=== PATIENT | female | born 1955 | race Caucasian/White ===

== ENCOUNTER 2022-09-25 21:54 | Emergency (ER) | payer MEDICARE, OTHER, SELFPAY ==
[2022-09-25 22:00] VITALS: BP 155/88; PULSE 65; RESP 18; TEMP 36.1; O2SAT 95; BMI 25.8
[2022-09-25] MEDS: Lidocaine 4 % Cream KIT 1 APPL TOPICAL (23:09)
--- NOTE | 2022-09-25 23:23 | ED.GENADULT ---
HPI - General Adult General Chief complaint: Animal Bite Stated complaint: tick bite Time Seen by Provider: 09/25/22 22:09 Source: patient Mode of arrival: ambulatory Limitations: no limitations History of Present Illness HPI narrative: This is a 67-year-old female presenting with tick bite to left side of neck, she noticed a tick earlier today after a walk however she is unsure how long the tick is been and therefore. Patient reports that her try to take the tick out however it kept bearing itself deeper and deeper and they were unsuccessful with removing the tick. Patient requesting prophylactic doxycycline. Denies fevers, chills, joint pain, nausea you, vomiting, headache, vision changes, dizziness or altered mental status. No notable rashes Related Data Previous Rx's Medication Instructions Recorded doxycycline hyclate 100 mg capsule 100 mg PO BID 10 days #20 caps 09/25/22 Allergies Allergy/AdvReac Type Severity Reaction Status Date / Time lisinopril [Lisinopril] Allergy Severe ANGIOEDEMA Unverified 01/20/20 14:40 acetaminophen [From Vicodin] Allergy Unknown AGITATION Unverified 01/20/20 14:40 latex [Latex] Allergy Unknown ITCHING Unverified 01/20/20 14:40 From Tekturna Allergy Severe ANGIOEDEMA Uncoded 01/20/20 14:40 From Vicodin Allergy Unknown AGITATION Uncoded 01/20/20 14:40 Review of Systems Review of Systems: Constitutional : No Weight loss, No Fever, No Chills, No Fatigue, No Malaise ENT/Mouth : No sore throat, No Rhinorrhea Eyes: No Eye Pain, No Swelling, No Redness Cardiovascular : No Chest Pain, No SOB, No Dyspnea on Exertion, No Orthopnea, No Edema, No Palpitations Respiratory : No Cough, No Sputum, No Wheezing Gastrointestinal : No Nausea, No Vomiting, No Diarrhea, No Constipation, No abdominal Pain, No Hematochezia, No Melena Genitourinary : No Dysuria, No Urinary Frequency, No Hematuria, Musculoskeletal : No joint pain, No Myalgias, No Joint Swelling Skin : No Skin Lesions, No rash Neuro : No Weakness, No Numbness, No Dizziness, No Headache Psych : No Anxiety/Panic, No Depression All other systems reviewed and are negative Yes all other systems are reviewed and are negative PMFSH Past Medical History Attestation statement: The following information was validated with the patient. Source: old records reviewed and nursing notes reviewed Social History Social History Advance Directives: No Advance Directives Information Provided: Yes Physical Exam ED Vital Signs: Vital Signs - 24 hr 09/25/22 22:00 Temperature 96.9 F Pulse Rate 65 Respiratory Rate 18 Blood Pressure 155/88 H Pulse Oximetry 95 Oxygen Delivery Method Room Air BMI result Body Mass Index 25.8 vss Appearance: Alert.? Oriented X3.? No acute distress.? Head: Normocephalic, atraumatic, no step-offs or deformities Eyes: Pupils equal, round and reactive to light.? Neck: Normal inspection.? Neck supple.? + tick bite to L side of neck w/ tick still embedded CVS: Normal heart rate and rhythm.? Pulses normal.? Respiratory: No respiratory distress.? Breath sounds normal.? Abdomen: Soft and nontender.? Skin: Skin warm and dry.? Normal skin color.? Normal skin turgor.? Extremities: No lower extremity edema.? No calf ttp. 5/5 strength to bilateral upper and lower extremities Neuro: Oriented X 3.? No motor deficit.? No sensory deficit. CN 2-12 intact Course Reevaluation(s) Reevaluation #1: My attending removing tick. Patient to be discharged with doxycycline. Educated patient on diagnosis and treatment plan, answered all question, patient verbalizes understanding. At this time patient will be discharged home, advised to return with new or worsening symptoms. Educated on worrisome signs and symptoms and when to return. At this time I feel comfortable discharge home. Time: 23:26 Medications Administered Discontinued Medications Generic Name Dose Route Start Last Admin Trade Name Manuel PRN Reason Stop Dose Admin Lidocaine HCl 1 appl 09/25/22 22:44 09/25/22 23:09 Lidocaine 4 % Cream Kit TOPICAL 09/25/22 22:45 1 appl ONCE ONE Administration Protocol Medical Decision Making Medical Decision Making [facility] Narrative: 2300 67-year-old female presents with tick bite to left lateral aspect of neck, noticed it today however unclear when the tick attached. Physical exam significant for tick bite to left lateral aspect of neck. Concerns for tick bite, no signs of cellulitis, necrotizing infection. Will obtain test for Lyme disease. Plan removal of took. Differential Diagnosis Differential Diagnoses: The differential diagnosis associated with the presentation includes Concerns for tick bite, no signs of cellulitis, necrotizing infection. Will obtain test for Lyme disease. Admission/Observation Consideration of admission/observation: Escalation of care including admission/observation considered Core Measures AMI core measures followed: Yes Measure exclusions: not indicated Critical Care Time Critical Care Time Critical Care Time: No Discharge Plan Discharge Clinical Impression: Tick bite Patient Disposition: Home, Self-Care Instructions: Tick Bite (ED) Additional Instructions: Take your medications as prescribed. If you were prescribed antibiotics today, it is important that you take your medication to their entirety, do not skip any doses, do not finish them early. Follow-up with your primary care provider this week. Return to the emergency department with new or worsening symptoms. Such as fevers, chills, chest pain, shortness of breath, nausea, vomiting, dizziness, headache, vision changes, lethargy In case of emergency call 911 Prescriptions at [facility] in [place] Use caution in direct sunlight with doxycycline and can cause a skin rash. Wear hat when possible and long sleeves Prescriptions: New doxycycline hyclate 100 mg capsule 100 mg PO BID 10 Days Qty: 20 0RF Referrals: Dickson Kendrick MD [Primary Care Provider] - 2 days
--- NOTE | 2022-09-25 23:52 | PC.NURSE ---
Per MD Shane to this RN- please cancel orders for both Lyme and Tick-Borne disease blood draws
== END 2022-09-25 23:59 | disposition home or self-care (01) ==
PROVIDERS: Emergency Provider Internal Medicine; PCP Internal Medicine
DX: S10.96XA Insect bite of unspecified part of neck, initial encounter (principal); W57.XXXA Bitten or stung by nonvenomous insect and other nonvenomous arthropods, initial encounter; Y93.01 Activity, walking, marching and hiking; Y92.9 Unspecified place or not applicable; Y99.9 Unspecified external cause status
CPT/HCPCS: 99282; 99283

== ENCOUNTER 2023-07-10 09:23 | Outpatient (REF) | payer MEDICARE, OTHER, SELFPAY ==
[2023-07-10 11:38] LABS: MANUAL DIFF FLAG NO
[2023-07-10 11:47] LABS: Basophils Percent Auto 0.7 % (0-2); Eosinophils Absolute Auto 0.2 X10*3/uL (0.0-0.4); Eosinophils Percent Auto 3.3 % (0-4); Hematocrit 40.7 % (37.0-47.0); Hemoglobin 13.8 g/dl (12.0-16.0); Imm Gran Abs Auto 0.01 X10*3/uL (0.00-0.03); Imm Gran Pct Auto 0.2 % (0.0-0.4); Lymphocytes Absolute Auto 1.8 X10*3/uL (1.2-4.9); Lymphocytes Percent Auto 40.9 % (20-40); Mean Corpuscular HGB Conc 33.9 g/dl (31.0-35.0); Mean Corpuscular Hemoglobin 30.6 pg (27.0-33.0); Mean Corpuscular Volume 90.2 fL (80.0-98.0); Mean Platelet Volume 10.4 fL (9.4-12.3); Monocytes Absolute Auto 0.3 X10*3/uL (0.1-1.2); Neutrophils Absolute Auto 2.2 x10*3/uL (2.0-8.3); Neutrophils Percent Auto 48.9 % (45-73); Platelet Count 210 X10*3/uL (160-400); Red Blood Count 4.51 X10*6/uL (4.20-5.50); Red Cell Distribution Width 12.3 % (11.0-16.0); White Blood Count 4.5 X10*3/uL (4.8-10.8)
[2023-07-10 12:22] LABS: Alanine Aminotransferase 14 U/L (0-31); Albumin Level 3.9 g/dL (3.5-5.0); Alkaline Phosphatase 49 U/L (39-117); Anion Gap 10 (12-20); Aspartate Amino Transferase 13 U/L (5-31); Bilirubin Total 0.7 mg/dL (0.0-1.0); Blood Urea Nitrogen 15 mg/dL (9-16); Calcium 9.1 mg/dL (8.4-10.2); Carbon Dioxide 26 mmol/L (22-29); Chloride 108 mmol/L (96-108); Estimated Glomerular Filt Rate > 60; Glucose Random 102 mg/dL (60-115); Sodium 140 mmol/L (135-145); Total Protein 7.1 g/dL (6.5-8.0)
== END 2023-07-10 09:24 | disposition home or self-care (01) ==
LOC: HO.10HDL 09:23
PROVIDERS: Visit Provider Internal Medicine Hypertension Specialist
DX: N18.30 Chronic kidney disease, stage 3 unspecified (principal)
CPT/HCPCS: 36415; 80053; 85025

== ENCOUNTER 2023-07-17 13:13 | Outpatient (AMB) | payer MEDICARE, OTHER, SELFPAY ==
[2023-07-17 13:18] VITALS: BP 132/82; PULSE 76; O2SAT 95; BMI 37.7
--- NOTE | 2023-07-17 13:18 | HO.NEPHOV ---
HPI HPI Comments History of Present Illness Details Laura is well known to me for the last earlier she has a 68-year-old woman with a history of obesity and hypertension. She was on Bystolic which she has stopped and she started with Aldactone 12.5 mg a day. At present blood pressure seems to be well controlled. She has no complaints today. She continues to use CPAP regularly. [facility] Medical History (Updated 07/17/23 @ 13:32 by Eric Richmond MD) Sleep apnea Malignant tumor of breast Hypertension Hearing problem Surgical History S/P lumpectomy, right breast Family History Father Hypertension Stroke Heart disease Brother Hypertension Diabetes Social History Alcohol intake: never Patient Tobacco Use Status: Never used Tobacco Vital Signs 07/17/23 13:18 Height 5 ft 8 in Weight 248 lb BMI 37.7 BP 132/82 Blood Pressure Location Lt brachial Position Sitting Pulse 76 Pulse Source Pulse Oximeter Pulse Oximetry (%) 95 Oxygen Delivery Method Room Air Physical Exam Vital Signs: Last Vital Signs Pulse 76 07/17/23 13:18 BP 132/82 07/17/23 13:18 Pulse Ox 95 07/17/23 13:18 Oxygen Delivery Method Room Air 07/17/23 13:18 BMI result Body Mass Index 37.7 Const General: comfortable Nutritional Appearance: well nourished Orientation/consciousness: patient oriented x3 HEENT Head: No normal to inspection Mouth: moist mucous membranes Neck Neck: Yes supple and Yes no JVD Resp Auscultation: clear to auscultation bilaterally, no rales and rub present Cardio Jugular venous distension: no JVD Palpation: no palpable S3 and no palpable S4 Heart sounds: no rubs GI Palpation (GI): Soft to palpation and nontender Percussion: No Fluid wave present General: Yes no CVA tenderness Back/Spine/Pelvis Back: no CVA tenderness Skin General skin exam: no rashes or lesions noted Neuro General: patient oriented x3 Extrem General: Yes no pedal edema and No clubbing Assessment & Plan Assessment & Plan (1) Hypertension: Code(s): I10 - Essential (primary) hypertension Plan Blood pressure controlled Encouraged to stay on low-sodium diet. She should try to lose some weight and increase physical activity. I have encouraged her to continue using CPAP which should eventually help to lower her blood pressure. No changes were made to the antihypertensive regimen today. Renal function stable at this time. Orders: Orders Basic Metabolic Panel 6 Months I10 - Essential (primary) hypertension Coding Level of Care Code Est Pt Level 4 (85273) Diagnoses Hypertension I10 Results Reviewed Nephrology Results: Hgb 13.8 g/dl (12.0-16.0) 07/10/23 WBC 4.5 X10*3/uL (4.8-10.8) L 07/10/23 Plt Count 210 X10*3/uL (160-400) 07/10/23 Sodium 140 mmol/L (135-145) 07/10/23 Potassium 4.0 mmol/L (3.3-5.1) 07/10/23 Chloride 108 mmol/L (96-108) 07/10/23 Carbon Dioxide 26 mmol/L (22-29) 07/10/23 BUN 15 mg/dL (9-16) 07/10/23 Creatinine 0.74 mg/dL (0.5-1.4) 07/10/23 Calcium 9.1 mg/dL (8.4-10.2) 07/10/23
== END 2023-07-17 13:34 | disposition home or self-care (01) ==
PROVIDERS: PCP Internal Medicine; Referring Provider Internal Medicine; Visit Provider Internal Medicine Hypertension Specialist
DX: I10 Essential (primary) hypertension (principal)
CPT/HCPCS: 99214

== ENCOUNTER → 2023-07-17 13:13 | Outpatient (BNVA) | payer MEDICARE, OTHER, SELFPAY | PROVIDERS: PCP Internal Medicine; Visit Provider Internal Medicine Hypertension Specialist | DX: I10 Essential (primary) hypertension (principal) | CPT/HCPCS: 99212 ==

== ENCOUNTER 2024-01-20 10:41 | Outpatient (AMB) | payer MEDICARE, OTHER, SELFPAY ==
[2024-01-20 10:43] VITALS: BP 112/80; PULSE 65; O2SAT 96; BMI 38.2
--- NOTE | 2024-01-20 10:43 | HO.NEPHOV_ITS ---
Vital Signs 01/20/24 10:43 Height 5 ft 8 in Weight 251 lb BMI 38.2 BP 112/80 Blood Pressure Location Lt brachial Position Sitting Pulse 65 Pulse Source Pulse Oximeter Pulse Oximetry (%) 96 Oxygen Delivery Method Room Air Intake Visit Reasons: Hypertension/ 6 MO FU/ LVM Profiling Machine Set Up Operator Required: No Accompanied by: Self / Same As Patient Allergies lisinopril [Lisinopril] Allergy (Severe, Verified 01/20/24 10:45) ANGIOEDEMA acetaminophen [From Vicodin] Allergy (Unknown, Verified 01/20/24 10:45) AGITATION latex [Latex] Allergy (Unknown, Verified 01/20/24 10:45) ITCHING From Tekturna Allergy (Severe, Uncoded 01/20/20 14:40) ANGIOEDEMA From Vicodin Allergy (Unknown, Uncoded 01/20/20 14:40) AGITATION Medication List - Last Reconciled 01/20/24 by Eric Richmond MD spironolactone 25 mg PO DAILY HPI Comments Details: Laura is well known to me for the last earlier she has a 68-year-old woman with a history of obesity and hypertension. She was on Bystolic which she has stopped and she started with Aldactone 12.5 mg a day. At present blood pressure seems to be well controlled. She has no complaints today. She continues to use CPAP regularly. 01/20/24 Has gained weight ADmits to eating out alot [facility] Medical History (Updated 07/17/23 @ 13:32 by Eric Richmond MD) Sleep apnea Malignant tumor of breast Hypertension Hearing problem Surgical History S/P lumpectomy, right breast Family History Father Hypertension Stroke Heart disease Brother Hypertension Diabetes Social History Alcohol intake: never Patient Tobacco Use Status: Never used Tobacco Physical Exam Vital Signs: Last Vital Signs Pulse 65 01/20/24 10:43 BP 112/80 01/20/24 10:43 Pulse Ox 96 01/20/24 10:43 Oxygen Delivery Method Room Air 09/17/24 10:43 BMI result Body Mass Index 38.2 Results Reviewed Nephrology Results: Hgb 13.8 g/dl (12.0-16.0) 07/10/23 WBC 4.5 X10*3/uL (4.8-10.8) L 07/10/23 Plt Count 210 X10*3/uL (160-400) 07/10/23 Sodium 140 mmol/L (135-145) 07/10/23 Potassium 4.0 mmol/L (3.3-5.1) 07/10/23 Chloride 108 mmol/L (96-108) 07/10/23 Carbon Dioxide 26 mmol/L (22-29) 07/10/23 BUN 15 mg/dL (9-16) 07/10/23 Creatinine 0.74 mg/dL (0.5-1.4) 07/10/23 Calcium 9.1 mg/dL (8.4-10.2) 07/10/23 Assessment & Plan Assessment & Plan (1) Hypertension: Code(s): I10 - Essential (primary) hypertension Category: Medical Plan Blood pressure controlled Encouraged to stay on low-sodium diet. She should try to lose some weight and increase physical activity. I have encouraged her to continue using CPAP which should eventually help to lower her blood pressure. No changes were made to the antihypertensive regimen today. Renal function stable at this time. Orders: Orders Basic Metabolic Panel 6 Months I10 - Essential (primary) hypertension Coding Level of Care Code Est Pt Level 3 (63490) Diagnoses Hypertension I10
== END 2024-01-20 10:58 | disposition home or self-care (01) ==
PROVIDERS: PCP Internal Medicine; Visit Provider Internal Medicine Hypertension Specialist
DX: I10 Essential (primary) hypertension (principal)
CPT/HCPCS: 99213

== ENCOUNTER → 2024-01-20 10:41 | Outpatient (BNVA) | payer MEDICARE, OTHER, SELFPAY | PROVIDERS: PCP Internal Medicine; Visit Provider Internal Medicine Hypertension Specialist | DX: I10 Essential (primary) hypertension (principal); Z99.89 Dependence on other enabling machines and devices | CPT/HCPCS: 99212 ==

== ENCOUNTER 2024-10-01 13:48 | Outpatient (REF) | payer SELFPAY ==
--- OUTSIDE RECORDS SUMMARY | 2024-10-01 13:56 | XMS_ITS ---
Author Organization [facility] Address [address] [place] [address] Care Team Providers Care Route Sales Delivery Driver Name Role Phone Dickson Kendrick MD Primary Care Provider Cathy Davis [phone] Encounters Encounter Location Date Provider Diagnosis [facility] [address] [place] [address] 08/06/2023 Cathy Levine Plan Of Treatment No Information Progress Notes * Cristopher CARBONE MDOB: [birth year] (69 yo F)Acc No.[id number]:08/06/2023 Progress Note Patient:?Cristopher CARBONE Provider:?Cathy Levine DPM :1955???Age:68 Y???Sex:Female D ate:08/06/2023 Address:[address], [place] Pcp:Dickson Kendrick MD Subjective: * Chief Complaints: * ??? * Medical History:? Objective: * Vitals:? Assessment: Plan: * Treatment: * Images: * The named appointment provid er may or may not be the originator of this progress note, and it is not deemed complete until electronically signed by the appointment provider. Sign off status: Pending * Provider:?Cathy Levine DPM Date:?07/2023 Generated for Printi bradley/Jessi/eTransmitting on:?10/01/2024 01:56 PM EDT
--- NOTE | 2024-10-01 15:16 | MHC.AU.HA1 ---
Hearing Aid Evaluation Date of Visit: 10/01/24 Animal Control Officer Used: Historical Information: Description of Hearing: Moderate to moderately severe sensorineural hearing loss bilaterally Current personal amplification information, if applicable: [employer] Larkin RICs Summary: Laura is here to discuss hearing aids, has worn hearing aids for many years and is currently wearing a pair of Larkin RICs that she is unhappy with. States she has not used her hearing aid benefit in several years, did not submit for [facility] reimbursement for her Larkin aids that were purchased about a year ago. She is specifically interested in new Phonak aids as she wore them in the past and liked them, found phone reliability to be good. She does not want rechargeable hearing aids. Discussed this means Lumity rather than Infinio, she is fine with this. Recommended earmolds, states she has tried them a few times in the past and always ended up in domes as she could not tolerate them. Discussed reasons for earmolds, patient agreed to try them if we are unable to obtain sufficient gain with domes. Selected Phonak Audeo L70-312 in teal. Completed order confirmation form, went to front to pay $350. Aware she will pay in full at fitting and get itemized receipt for insurance reimbursement. States she has old [employer] hearing aids she will be bringing as donation. Hearing Aid Prescription: Based on the individual?s shared listening needs, communication environments, dexterity, desire for connectivity, and personal preferences, the following prescription for amplification has been made: Right ear: Make, Model, Color: Phonak Audeo L70-312, teal Battery Size: 312 Lumber Mover/Slim Tube: 2 M Type of Earmold/Dome/CShell/SlimTip: sm power Left ear: Left ear prescription to be same as Right Hearing Aid above: Make, Model, Color: Phonak Audeo L70-312, teal Battery Size: 312 Lumber Mover/Slim Tube: 2 M Type of Earmold/Dome/CShell/SlimTip: sm power Plan of Care: Patient wishes to purchase hearing aids as prescribed Action Taken/Action Needed: Hearing Instrument Fitting to be scheduled when materials arrive Primary Diagnosis: H90.3 Bilateral Sensorineural Hearing Loss Signature: Provider: Jorgito Preciado, [facility]
== END 2024-10-01 13:49 | disposition home or self-care (01) ==
LOC: HO.HAP 13:48
PROVIDERS: PCP Internal Medicine; Visit Provider Otolaryngology
DX: Z46.1 Encounter for fitting and adjustment of hearing aid (principal); H90.3 Sensorineural hearing loss, bilateral
CPT/HCPCS: 92590

== ENCOUNTER 2024-10-19 15:18 | Outpatient (REF) | payer SELFPAY ==
--- OUTSIDE RECORDS SUMMARY | 2024-10-19 17:49 | XMS_ITS ---
Author Name [facility] Organization Unknown Encounters Encounter Type Encounter Reason Primary Diagnosis Location Date Emergency Tick bite with subsequent removal of tick Tick bite with subsequent removal of tick [facility] 10/12/2024 Care Team Organization Name Specialty Phone Email Start Date End Da te [facility] 10/13/2024 [facility] 10/13/2024
== END 2024-10-19 15:19 | disposition home or self-care (01) ==
LOC: HO.HAP 15:18
PROVIDERS: Visit Provider Internal Medicine
DX: Z46.1 Encounter for fitting and adjustment of hearing aid (principal); H90.3 Sensorineural hearing loss, bilateral
CPT/HCPCS: 92700; V5261

== ENCOUNTER 2024-11-09 13:57 | Outpatient (REF) | payer SELFPAY ==
--- OUTSIDE RECORDS SUMMARY | 2023-08-06 05:00 | XMS_ITS ---
Author Organization [facility] Address [address] [place] [address] Care Team Providers Care Mobile Service Rv Technician Name Role Phone Dickson Kendrick MD Primary Care Provider Cathy Davis [phone] Encounters Encounter Location Date Provider Diagnosis [facility] [address] [place] [address] 08/06/2023 Cathy Levine Plan Of Treatment No Information Progress Notes * Cristopher CARBONE MDOB: [birth year] (69 yo F)Acc No.[id number]:08/06/2023 Progress Note Patient: Caren ESCOBAR Cristopher Belle Provider: Varinder Levine DPM :1955 A ge:68 Y S ex:Female Date:08/06/2023 Address:[address], [id number] Pcp:Dickson Kendrick MD Subjective: * Chief Complaints: [...] 0 08/06/2023 Generated for Printi ng/Faxing/eTransmitting on: 11/09/2024 02:46 PM EDT
--- OUTSIDE RECORDS SUMMARY | 2024-11-09 14:47 | XMS_ITS | Clinical Summary ---
Author Organization [facility] Address [address] [place] [address] Phone Care Team Providers Care Electronic Organ Technician Name Role Phone Dickson Kendrick MD Primary Care Provider [phone] Allergies Active Allergy Reactions Criticality Noted Date Comments Tremaine Inhibitors Other (see comments) 06/29/2020 Aliskiren 11/17/2020 Amlodipine Other (see comments) 06/29/2020 Hydrochlorothiazide Other (see comments) 06/29/2020 Hydrocodone-Acetaminophen 11/17/2020 Other reaction(s): AGITATED Latex Other (see comments) 06/29/2020 Metoprolol Other (see comments) 06/29/2020 Medications cholecalciferol (VITAMIN D-3) 25 MCG (1000 UT) capsule Take 1 capsule by mouth 1 (one) time each day Active omega-3 (FISH OIL) 1000 MG capsule Active cyanocobalamin (VITAMIN B-12) 100 MCG tablet 0 Refills, Maintenance 3 Active spironolactone (ALDACTONE) 25 MG tablet TAKE 1 TABLET BY MOUTH EVERY DAY 90 tablet 3 3 Active Active Problems Problem Noted Date Diagnosed Date Increased blood pressure 06/29/2020 Essential hypertension 06/29/2020 Sleep apnea 06/29/2020 Endometriosis 01/18/2014 Hyperglycemia 01/18/2014 Migraine 01/18/2014 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 Sensorineural hearing loss <Unspecified side> Family History Medical History Relation Comments Heart disease Father irregular heart beat Hypertension Father Stroke Father Diabetes Sibling 1 brother Hypertension Sibling 2 brother/sister Relation Status Comments Father Mother Sibling 1 Sibling 2 Social History Tobacco Use Types Packs/Day Years Used Date Smoking Tobacco: Never Smokeless Tobacco: Never Tobacco Cessation:Counseling Given: Not Answered Alcohol Use Standard Drinks/Week Comments No 0 (1 standard drink = 0.6 oz pur e alcohol) Comments Unknown Sex and Gender Information Value Date Recorded Sex Assigned at Not on file Legal Sex Female 4:47 PM EST Gender Identity Not on file Sexual Orientation Not on file Last Filed Vital Signs Vital Sign Reading Time Taken Comments Blood Pressure 126/78 04/17/2022 1:23 PM EST Pulse 55 04/17/2022 1:23 PM EST Temperature - - Respiratory Rate - - Oxygen Saturation 95% 04/17/2022 1:23 PM EST Inhaled Oxygen Concentration - - Weight 110 kg (243 lb 3.2 oz) 04/17/2022 1:23 PM EST Height 175.3 cm (5' 9 ) 06/03/2019 12:00 PM EST Body Mass Index 35.91 06/03/2019 12:00 PM EST Plan of Treatment Health Maintenance Due Date Last Done Comments Breast Cancer Screening 1955 Pneumococcal Vaccine: 50+ Ye ars (1 of 2 - PCV) 12/31/1974 Colorectal Cancer Screening: Annual FOBT 12/31/2004 Colorectal Cancer Screening: Colonoscopy 12/31/2004 Colorectal Cancer Screening: Sigmoidoscopy 12/31/2004 Influenza Vaccine (#1) 2025 Hepatitis B Vaccine Aged Out No longe r eligible based on patient's age to complete this topic Insurance [facility] Medicare [facility] Medicare Care Teams Electronic Organ Technician Relationship Specialty Start Date End Date Dickson Kendrick MD [address] [place] [id number] PCP - General Internal Medicine 04/17/22
--- OUTSIDE RECORDS SUMMARY | 2024-11-09 14:47 | XMS_ITS | Data Portability ---
Author Organization [place] - [facility], Allergy Address [address] [address] Care Team Providers Care Clinical Educator Name Role Phone PAUL GENTILE Primary Care Provider [phone] Assessment No assessment recorded. Plan of Treatment Reminders Order Date Submit Date Provider Last Modified By Organization Details Last Modified Time Details Appointments None record ed. Lab None record ed. Referral None record ed. Procedures None record ed. Surgeries None record ed. Imaging None record ed. Medication Orders None record ed. Patient TargetsNo targets recorded. Patient InstructionsNo instructions recorded. Reason for Referral None Reported. Results Created Date Observation Date Name Description Value Unit Range Abnormal Flag Note LastModifiedBy Organization Detail LastModifiedTime 06/28/19 25 audio gram No observ ation record ed. BARCODE Not Available 2024 16:25:59 Result Notes None recorded. 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 - [facility] 5 10:24:12 Problem Notes None recorded. Procedures Surgical History Date Name Laterality Status Provider Name and Address Organization Details Recorded Time 5 Comp Audio with Tymps - 43867 & 83670 completed RONEY RICHARDS, [facility] 100 [facility], [place], [address], [facility] 06/28/2024 10:25:19 breast procedure completed Elham Johnston [facility] 06/28/2024 09:39:11 Imaging Results None recorded. Procedure Notes None recorded. Medical Equipment None Reported. Allergies Allergen ID Allergen Name Allergen Category Reaction Reaction Severity Criticality Documentation Date Start Date Code Code System Note Provider Name and Address Organization Details Recorded Time 770361 lisinopri l medicatio n other Not available Not available 09/16/2023 73352 RxNorm React ion: unkno wn, unspe cifie d;; Not Available [facility] 4 01:15:21 264529 Coreg medicatio n Not available Not available Not available 06/28/2024 99163 1 RxNorm Elham barnes [facility] 5 09:38:01 Medications Name Sig Start Date Stop Date Status Note LastModified by Organization Details LastModified Time wart 1.0 (cimetidi ne 2 + acyclovir 1 + imiquimod 0.25 + salicylic acid 15) USING A GLOVE AND Q-TIP, APPLY 1-2 CLICKS (0.25-0. 5 GM) TO AFFECTED WART AREA ONLY ONCE DAILY. 06/28 completed Not Available Not Available Not Available peg-elect rolyte solution 420 gram oral solution 06/28 completed Medicati on ID: 42257 Du ration Value: 1 Brand Name: peg-elec trolyte soln Baldo parra Method: E-Prescr ibed Sub s Allowed: subs OK Medic ationGen ericName : peg-elec trolyte soln Not Available Not Available Not Available spironola ctone 25 mg tablet TAKE 1 TABLET BY MOUTH EVERY DAY active Not Available Not Available No t Available clotrimaz ole 1 % topical solution 06/28 completed Medicati on ID: 34131 Du ration Value: 14 Prescri bed By Name: BROWN Castellon nd Name: zita zoloj Sen d Method: E-Prescr ibed Sub s Allowed: subs OK Speci al Instruct ion: 3 drops to affected ear three times a day Medi cationGe nericNam e: clotrima zole Not Available Not Available Not Available Bystolic 5 mg tablet 06/28 completed Medicati on ID: 48096 Du ration Value: 90 Brand Name: Esau Send Method: E-Prescr ibed Sub s Allowed: subs OK Medic ationGen ericName : Bystolic Not Available Not Available Not Available Vitals None Recorded Social History None recorded. Functional Status None recorded. Mental Status None recorded. Family History Nothing Reported. Medical History Condition Response Cancer Y Heart Problems Y Sleep Disorder Y Gynecological HistoryNo gynecological history recorded. Obstetrics History GPAL:G 0 P 0 0 0 0 Past Encounters Encounter ID Performer Location Encounter Start Date Encounter Closed Date Diagnosis/Indication Diagnosis SNOMED-CT Code Diagnosis ICD10 Code Diagnosis Note [id number] DENTON BRITO MD [facility] on [address] [place] [phone] 06/28/2024 09:19:04 06/28/2024 10:45:02 Sensorineural hearing loss of bilateral ears 506838756 H90.3 Patient with bilateral moderately severe sensorineu ral hearing loss with relatively well-maint ained speech discrimina tion. She remains a good candidate for binaural amplificat ion. We discussed how her current devices may not be able to meet her needs adequately . She is eager to get back into the [employer] technology that has done so well for her in the past. We discussed the likelihood that she may need custom earmolds to accommodat e the degree of hearing loss that she has. She will speak more with Roney about this at a hearing aid evaluation . We will set this up as soon as possible. [place] [id number] KRISSY FERRER [facility] on [address] [place] [phone] 06/28/2024 10:23:58 06/28/2024 10:41:58 Sensorineural hearing loss of bilateral ears 160721078 H90.3 Audiologic al evaluation results: 06/28/2024 Right ear: Mild sloping to moderately severe sensorineu ral hearing loss with fair word recognitio n. Left ear: Mild sloping to moderately severe sensorineu ral hearing loss with fair word recognitio n. Tympanomet ry: Right Ear:Type Ad Left Ear:Type Ad Health Concerns Section Related Observation LastModified by Organization Detai ls LastModified Time None Recorded Concern Status LastModified by Organization Details LastModified Time None Recorded Advance Directives Directive None Recorded Payers Insurance Date Sequence Insurance Name Policy Number Policy Patten Covered Member ID Patten Member ID Guarantor Name 06/29/2024 2 [facility] (MEDICARE SUPPLEMENT) Cristopher Carbone [id number] Cristopher Carbone 06/23/2024 1 [place] [employer] Laura Barbra Carbone [id number] Cristopher Carbone Notes Date Note Type Note Provider Name and Address Organization Details Recorded Time 06/28/2024 text/html Patient who was last seen through our office back in 2014. She has a bilateral moderately severe sensorineural hearing loss with relatively well-maintained speech discrimination. She has been working with [employer] over the years using amplification. She used [employer] devices for a number of years with good results. Recently got a new pair of Clara devices but these are not working as well for her recently. DENTON BRITO MD [address] [place] [address], [phone], [facility] - [facility] 06/28/2024 10:42:16 06/28/2024 text/html KRISSY BURR [address] [place] [address],[address], [address], [facility] 06/28/2024 10:25:32 OBGyn Episode No OBEpisode recorded.
== END 2024-11-09 13:58 | disposition home or self-care (01) ==
LOC: HO.HAP 13:57
PROVIDERS: Visit Provider Internal Medicine
DX: Z13.89 Encounter for screening for other disorder (principal)

== ENCOUNTER 2024-11-17 15:33 | Outpatient (REF) | payer SELFPAY ==
--- OUTSIDE RECORDS SUMMARY | 2023-08-06 05:00 | XMS_ITS ---
Author Organization [facility] Address [address] [place] [address] Care Team Providers Care Sorting Machine Operator Name Role Phone Dickson Kendrick MD Primary Care Provider Cathy Davis [phone] Encounters Encounter Location Date Provider Diagnosis [facility] [address] [place] [address] 08/06/2023 Cathy Levine Plan Of Treatment No Information Progress Notes * Cristopher CARBONE MDOB: [birth year] (69 yo F)Acc No.[id number]:08/06/2023 Progress Note Patient: Caren ESCOBAR Cristopher Belle Provider: Varinder Levine DPM :1955 A ge:68 Y S ex:Female Date:08/06/2023 Address:[address], [id number] Pcp:Dickson Kendrick MD Subjective: * Chief Complaints: [...] 08/06/2023 Generated for Printi ng/Faxing/eTransmitting on: 0 11/17/2024 03:42 PM EDT
--- OUTSIDE RECORDS SUMMARY | 2024-11-17 15:43 | XMS_ITS ---
Author Name [facility]ISP Organization Unknown Encounters Encounter Type Encounter Reason Primary Diagnosis Location Date Emergency Tick bite with subsequent removal of tick Tick bite with subsequent removal of tick [facility] 10/12/2024 Care Team Organization Name Specialty Phone Email Start Date End Da te [facility] 10/13/2024 07 [facility] 10/13/2024
--- OUTSIDE RECORDS SUMMARY | 2024-11-17 15:43 | XMS_ITS | Clinical Summary ---
Author Organization [facility] Address [address] [place] [address] Phone Care Team Providers Care Vocational Case Manager Name Role Phone Dickson Kendrick MD Primary Care Provider [phone] Allergies Active Allergy Reactions Criticality Noted Date [...] patient's age to complete this topic Insurance [facility] Medicare [facility] Medicare Care Teams Vocational Case Manager Relationship Specialty Start Date End Date Dickson Kendrick MD [address] [place] [id number] PCP - General Internal Medicine 04/17/22
--- OUTSIDE RECORDS SUMMARY | 2024-11-17 15:43 | XMS_ITS | Data Portability ---
Author Organization [place] - [facility], Allergy Address [address] [address] Care Team Providers Care Cattle Producers Name Role Phone PAUL GENTILE Primary Care Provider [phone] Assessment No assessment recorded. Plan of Treatment [...] Address Organization Details Recorded Time Dermal mycosis 38379367 Active 2014 Dermatomyc osis, other and unspecifie d: Other specified dermatomyc oses; Note: Date Diagnosed: 06/29/2014 10:01 AM (111.8) Not Available [facility] 4 02:51:41 Chronic mycotic otitis externa 864901972 Active 2014 Chronic mycotic otitis externa; Note: Date Diagnosed: 06/14/2014 4:42 PM (380.15) Not Available [facility] 4 02:51:39 Sensorine ural hearing loss of bilateral ears 219950399 Active 2024 RONEY RICHARDS, AUD 100 [facility] 100, [facility] TARIK parra, [address] , [facility] - [facility] 5 10:24:12 Problem Notes None recorded. Procedures Surgical History Date Name Laterality Status Provider Name and Address Organization Details Recorded Time 5 Comp Audio with Tymps - 42407 & 36530 completed RONEY RICHARDS, [facility] 100 [facility] 100, [place], [address], [facility] 06/28/2024 10:25:19 breast procedure completed Elham Johnston [facility] 06/28/2024 09:39:11 Imaging Results None recorded. Procedure Notes None recorded. Medical Equipment None Reported. Allergies Allergen ID Allergen Name Allergen Category Reaction Reaction Severity Criticality Documentation Date Start Date Code Code System Note Provider Name and Address Organization Details Recorded Time 267767 lisinopri l medicatio n other Not available Not available 09/16/2023 04586 RxNorm React ion: unkno wn, unspe cifie d;; Not Available [facility] 4 01:15:21 235756 Coreg medicatio n Not available Not available Not available 06/28/2024 09945 1 RxNorm Elham barnes [facility] 5 09:38:01 Medications Name Sig Start Date [...] oral solution 06/28 completed Medicati on ID: 81388 Du ration Value: 1 Brand Name: peg-elec trolyte soln Baldo parra Method: E-Prescr ibed Sub s Allowed: subs OK Medic ationGen ericName : peg-elec trolyte soln Not Available Not Available Not Available spironola ctone 25 mg tablet TAKE 1 TABLET BY MOUTH EVERY DAY active Not Available Not Available No t Available clotrimaz ole 1 % topical solution 06/28 completed Medicati on ID: 01180 Du ration Value: 14 Prescri bed By Name: BROWN Castellon nd Name: zita zoloj Sen d Method: E-Prescr ibed Sub s Allowed: subs OK Speci al Instruct ion: 3 drops to affected ear three times a day Medi cationGe nericNam e: clotrima zole Not Available Not Available Not Available Bystolic 5 mg tablet 06/28 completed Medicati on ID: 50568 Du ration Value: 90 Brand Name: Esau Send Method: E-Prescr ibed Sub s Allowed: subs OK Medic ationGen ericName : Bystolic Not Available Not Available Not Available Vitals None Recorded Social History None recorded. Functional Status None recorded. Mental Status None recorded. Family History Nothing Reported. Medical History Condition Response Heart Problems Y Cancer Y Sleep Disorder Y Gynecological HistoryNo gynecological history recorded. Obstetrics History GPAL:G 0 P 0 0 0 0 Past Encounters Encounter ID Performer Location Encounter Start Date Encounter Closed Date Diagnosis/Indication Diagnosis SNOMED-CT Code Diagnosis ICD10 Code Diagnosis Note [id number] DENTON BRITO MD [facility] on [address] [place] [phone] 06/28/2024 09:19:04 06/28/2024 10:45:02 Sensorineural hearing loss of bilateral ears [id number] H90.3 Patient with bilateral moderately severe sensorineu [...] medically [place] [id number] KRISSY FERRER [facility] on [address] [place] [phone] 06/28/2024 10:23:58 06/28/2024 10:41:58 Sensorineural hearing loss of bilateral ears [id number] H90.3 Audiologic al evaluation results: 06/28/2024 Right [...] Patten Member ID Guarantor Name 06/29/2024 2 [facility] (MEDICARE SUPPLEMENT) Cristopher Carbone [id number] Cristopher Carbone 06/23/2024 1 [place]IC[place]: [employer] Laura Barbra Carbone [id number] Cristopher Carbone Notes Date Note Type Note Provider Name and Address Organization Details Recorded Time 06/28/2024 text/html Patient who was last seen through our office back in 2014. She has a bilateral moderately severe sensorineural hearing loss with relatively well-maintained speech discrimination. She has been working with [employer] over the years using amplification. She used [employer] devices for a number of years with good results. Recently got a new pair of Clara devices but these are not working as well for her recently. DENTON BRITO MD [address] [place] [address], [phone], [facility] - [facility] 06/28/2024 10:42:16 06/28/2024 text/html KRISSY BURR [address] [place] [address],[address], [address], [facility] 06/28/2024 10:25:32 OBGyn Episode No OBEpisode recorded.
== END 2024-11-17 15:34 | disposition home or self-care (01) ==
LOC: HO.HAP 15:33
PROVIDERS: Visit Provider Internal Medicine
DX: Z13.89 Encounter for screening for other disorder (principal)

== ENCOUNTER 2024-12-01 13:57 | Outpatient (REF) | payer SELFPAY ==
--- OUTSIDE RECORDS SUMMARY | 2024-11-29 23:59 | XMS_ITS | Continuity of Care Document ---
Author Organization [facility] [employer] Address [address] [place] [address]- Care Team Providers Care [place] House Worker Name Role Phone Dickson Kendrick MD Primary Care Physician [phone] Encounter [facility] Date(s): 11/22/24 - 11/29/24 [facility] [address] [place] [address]- Encounter Diagnosis Well adult exam(Discharge Diagnosis) - 11/22/24 Atrial fibrillation(Discharge Diagnosis) - 11/22/24 Attending Physician: Dickson Kendrick MD Encounter Type: Office Visit Allergies, Adverse Reactions, Alerts Substance Criticality Severity Reaction Reaction Severity Status lisinopril ANGIOEDEMA Active Latex ITCHY Active Tekturna ANGIOEDEMA Active Coreg WHEEZING Active Vicodin AGITATED Active Immunizations Given and Recorded Vaccine Date Status Refusal Reason SARS-CoV-2 (COVID-19) mRNA BNT-162b2 vac 04/11/21 Recorded SARS-CoV-2 (COVID-19) mRNA BNT-162b2 vac 08/30/20 Recorded SARS-CoV-2 (COVID-19) mRNA BNT-162b2 vac 08/09/20 Recorded influenza virus vaccine, inactivated 1 03/05/14 [facility] influenza virus vaccine, inactivated 2 02/03/12 [facility] Tet/diphth/pertussis, acel (oldterm) 3 12/06/11 [facility] tetanus-diphtheria toxoids (Td) 11/08/02 Given 1Admin Note: WORK 2Admin Note: [facility] 3Admin Note: VIS GIVEN Medications Aldactone 25 mg oral tablet 0.5 tab, By Mouth, Daily, Refills 0, Maintenance, 10/01/19 9:03:00 AM EDT Start Date: 10/01/19 Status: Ordered Repeat number: 1 CoQ10 0 Refills, Maintenance, 07/15/24 1:06:00 PM EDT, Partial fill upon patient request if the prescription is for a schedule II opioid drug. Start Date: 07/15/24 Status: Ordered Repeat number: 1 CPAP Machine See Instructions, # 1 each, Maintenance, AutoCPAP 10-20, 02/04/17 4:11:16 PM EDT, Compound Start Date: 02/04/17 Status: Ordered Quantity: 1.0 Unit: each Repeat number: 1 CPAP Equipment See Instructions, # 1 each, Refills 11, Tot. Refills 11, Maintenance, DX: STEFANY MASK, TUBING, FILTERS, HEAD GEAR, CHIN STRAP AND WATER CHAMBER, 03/22/21 3:26:00 PM EST, Compound Start Date: 03/22/21 Status: Ordered Quantity: 1.0 Unit: each Repeat number: 12 Eliquis 5 mg oral tablet 1 tablet = 5 mg, By Mouth, 2 times a day, # 60 tablet, 5 Refills, Maintenance, 11/22/24 9:07:00 AM EDT, Tablet, [facility]/pharmacy #[id number], Partial fill upon patient request if the prescription is for a schedule II opioid drug., 175.3, cm, 11/22/24 7:23:00 EDT, Height, 111, kg, 10/14/23 8:36:00 EDT, Dry Weight Start Date: 11/22/24 Stop Date: 05/21/25 Status: Ordered Quantity: 60.0 Unit: tablet Repeat number: 6 Metoprolol Succinate ER 25 mg oral tablet, extended release 12.5 mg, 0.5, tablet, By Mouth, Daily, # 15 tablet, Refills 5, Tot. Refills 5, Maintenance, :05:00 AM EDT, Route to Pharmacy Electronically, [facility]/pharmacy #[id number], Partial fill upon patient request if the prescription is for a schedule II opioid drug., 175.3, cm, 11/22/24 7:23:00 EDT, Height,111, kg, 10/14/23 8:36:00 EDT, Dry Weight Start Date: 11/22/24 Stop Date: 05/21/25 Status: Ordered Quantity: 15.0 Unit: tablet Repeat number: 6 Vitamin B12 0 Refills, Maintenance, 06/24/12 9:58:14 AM EST Start Date: 06/24/12 Status: Ordered Repeat number: 1 Vitamin D3 By Mouth, 0 Refills, Maintenance, 09/10/12 10:49:25 AM EDT Start Date: 09/10/12 Status: Ordered Repeat number: 1 Problem List Condition Confirmation Course Effective Dates Status H ealth Status Informant Obesity (BMI 30-39.9) Confirmed Active Fibroids Confirmed Active Hyperglycemia Confirmed Active Hypertension Confirmed Active Infiltrating ductal carcinoma of breast, right, T2 N0, triple negative, 2012 Confirmed Active Iron deficiency Confirmed Active Dense breast tissue on mammogram Confirmed Active Migraine Confirmed Active Obstructive sleep apnea syndrome Confirmed Active Sensorineural hearing loss Confirmed Active Severe obesity (BMI 35.0-39.9) with comorbidity Confirmed Active Skin lesions Confirmed Active Diagnosis Diagnosis Type Effective Dates Health Status Clinical Service Informant Well adult exam Discharge Diagnosis 11/22/24 Atrial fibrillation Discharge Diagnosis 11/22/24 Social History Social History Type Response Smoking Status Never (less than 100 in lifetime) entered on: 07/12/21 Sex Female Sex Representation Female (finding) EKG study * Event Display: ECG 12-Lead Authored Date: [id number] Please click on pdf link to open report * Event Display: ECG 12-Lead Authored Date: [id number] Ventricular Rate: 80 BPM Atrial Rate: 98 BPM QRS Duration: 130 ms Q-T Interval: 428 ms QTC Calculation(Bazett): 493 ms R Welcome: 15 degrees T Welcome: -20 degrees Atrial fibrillation Right bundle branch block Abnormal ECG When compared with ECG of 24-Apr-2015 19:10, Atrial fibrillation has replaced Sinus rhythm Vent. rate has increased by 29 bpm Right bundle branch block is now Present Confirmed by Mendoza Dunn ([id number]) on 11/22/2024 9:53:53 AM [place]: Mendoza Dunn Note * Lisbeth Dwyer: PERFORM Event Display: Patient Education/Instruction Authored Date: [id number] Ambulatory Adult Visit Summary [facility] [address] [address] Name: DIANNA GARCES : 1955?? Visit: 11/22/2024 07:13?? Ambulatory Visit Instructions ?? Your Care Team Primary Care Provider Dickson Kendrick MD? This Visit Provider Dickson Kendrick MD Your Diagnosis Well adult exam IFG (impaired fasting glucose) HLD (hyperlipidemia) Vitals Signs Temperature: 97.4 DegF Height: 175.3 cm Pulse Rate: 79 bpm Weight: 112.6 kg Respiratory Rate: 16 br/min Body Mass Index:??36.64 kg/m2??Critical Systolic Blood Pressure: 134 mm Hg Body surface area: 2.34 Diastolic Blood Pressure: 84 mm Hg ?? Oxygen Saturation: 99 % ?? What to do next Scheduled Follow-Up Appointments Friday 8:45 AM EDT ?? Where: [facility] [address] [place], [place] [id number]- Status: Pending Future Orders Comprehensive Metabolic Panel - Routine, Once, 11/22/24 7:59:00 EDT, Single or Recurring Future Order, [facility], Blood?? Lipid Panel - Routine, Once, 11/22/24 7:59:00 EDT, Single or Recurring Future Order, [facility], Blood?? Hemoglobin A1C (Monitoring) - Routine, Once, 11/22/24 7:59:00 EDT, Single or Recurring Future Order, [facility], Blood?? Medications The list below reflects the information in our records and provided by you today along with any changes made during this visit. Please continue your medications until treatment is completed or stopped by your provider. If this is different from the information you have or there are other questions,please contact the prescribing provider. What How Much When Instructions Unchanged Cholecalciferol (Vitamin D3) Oral Unchanged Cyanocobalamin (Vitamin B12) Unchanged Durable Medical Equipment (CPAP Machine) See instructions AutoCPAP 10-20 ?? Unchanged Durable Medical Equipment (CPAP Equipment) See instructions DX: STEFANY MASK, TUBING, FILTERS, HEAD GEAR, CHIN STRAP AND WATER CHAMBER ?? Unchanged [place]-3 Polyunsaturated Fatty Acids (Fish Oil 1000 mg oral capsule) 1 capsule Oral Twice a day Unchanged Spironolactone (Aldactone 25 mg oral tablet) 0.5 tab Oral Daily Unchanged Ubiquinone (CoQ10) Test Performed Below is a partial list of the tests performed during your Visit. You may have had other tests and procedures not included in this list. Please discuss all test results with your provider. Comprehensive Metabolic Panel?-- Results Pending -- Hemoglobin A1C (Monitoring)?-- Results Pending -- Lipid Panel?-- Results Pending -- Medications and Immunizations Administered Medications Given During Visit No medications given during this visit.?? Allergies (NKA means No Known Allergies) Coreg??(WHEEZING) Latex??(ITCHY) Tekturna??(ANGIOEDEMA) Vicodin??(AGITATED) lisinopril??(ANGIOEDEMA) Common Emergency Awareness Tips IS IT A STROKE? Act FAST and Check for these signs: FACE Does the face look uneven? ARM Does one arm drift down? SPEECH Does their speech sound strange? TIME Call at any sign of stroke ?? Heart Attack Signs Chest discomfort: Most heart attacks involve discomfort in the center of the chest and lasts more than a few minutes, or goes away and comes back. It can feel like uncomfortable pressure, squeezing, fullness or pain. Discomfort in upper body: Symptoms can include pain or discomfort in one or both arms, back, neck, jaw or stomach. Shortness of breath: With or without discomfort. Other signs: Breaking out in a cold sweat, nausea, or lightheaded. Remember, MINUTES DO MATTER. If you experience any of these heart attack warning signs, call to get immediate medical attention! ?? Smoking can increase your chances of developing chronic health problems and can cause harmful effects to other family members in your house. If you smoke, you are strongly encouraged to quit. Please call [facility] at [phone] or [phone] ([phone]) or log in to [email or web address] for referrals to smoking cessation programs. ?? The National Suicide Prevention Hotline is available 25/11 if you or someone you know needs to find a reason to keep living. By calling 0-432-483-[employer] (4341) you'll be connected to a skilled, trained counselor at a crisis center in your area. [facility] Portal You can view and manage your care through the patient portal or by using a health care betty of your choosing. [employer] is a website that allows you to securely view your medical information including your hospital discharge summary, office visit summaries, medications and follow-up visits. You can also request appointments, renew medications, and request access to your medical information using a health care betty of your choosing, or just ask a question. You can enroll at [email or web address] or register during your next office visit. [facility], in keeping with [facility] guidance, no longer requires face masks for staff, patientsor visitors in most situations. Similiar to time spent indoors at other locations, there is the chance that you were exposed to repiratory viruses during your time with us (such as flu or COVID-19). If you develop symptoms concerning for a viral respiratory infection, please seek testing (and treatment if indicated) from your medical provider or home test kit. ?? Disclaimer: The information provided is of a general nature and is intended to be used in conjunction with the recommendations and advice of your health care practitioner. Every effort has been made to ensure that the information provided is accurate and complete at the time it is provided to you however, as your needs change, or, as new information becomes available, different or additional instructions may be required. ?? If you have questions, please consult with your primary care provider or pharmacist, as appropriate. This information is not intended to serve as substitution for assessment and evaluation by a qualified health care provider. If you do not have a primary care provider, you may find a [facility] provider by calling [facility] at [phone]. Patient Care team information Care Team Personnel Name: Kianna Thomson Position: [facility] Outreach Member Role: Lifetime Consulting Physician Name: Dickson Kendrick MD Position: [facility] Physician - Primary Care Member Role: PCP Address: [address] [place] [address]- Telecom: Care Team Related Persons Name: LAURE YBARAR Insurance Providers Guarantor name: DIANNA DONALDBrian Health Plan Information #: 1 Payer: MEDICARE B Payer Identifier: NA Member Number: [id number] Group Number: NA Subscriber Identifier: [id number] Relationship to Subscriber: self Coverage Type: NA Coverage Verification Date: NA Telecom: NA Address: NA Health Plan Information #: 2 Payer: VIVIANA CLARK SUP Payer Identifier: DRE Member Number: [id number] Group Number: [id number] Subscriber Identifier: [id number] Relationship to Subscriber: self Coverage Type: Medicare Other Coverage Verification Date: DRE Telecom: DRE Address:
--- OUTSIDE RECORDS SUMMARY | 2024-12-01 14:38 | XMS_ITS | Clinical Summary ---
Author Organization [facility] Address [address] [place] [address] Phone Care Team Providers Care Sexer Name Role Phone Dickson Kendrick MD Primary Care Provider [phone] Allergies Active Allergy Reactions Criticality Noted Date [...] patient's age to complete this topic Insurance [facility] Medicare [facility] Medicare Care Teams Sexer Relationship Specialty Start Date End Date Dickson Kendrick MD [address] [place] [id number] PCP - General Internal Medicine 04/17/22
--- OUTSIDE RECORDS SUMMARY | 2024-12-01 14:38 | XMS_ITS | Clinical Summary ---
Author Organization [facility] Address [address] [place] [address] Phone Care Team Providers Care Edge Grinder Machine Name Role Phone Dickson Kendrick MD Primary Care Provider [phone] Allergies Active Allergy Reactions Criticality Noted Date Comments Tremaine Inhibitors 06/29/2020 Other reaction(s): ANGIOEDEMA, Other (see comments) Aliskiren 11/17/2020 Other reaction(s): ANGIOEDEMA Amlodipine 06/29/2020 Other reaction(s): Other (see comments) Carvedilol 05/07/2022 Other reaction(s): WHEEZING Hydrochlorothiazide 06/29/2020 Other reaction(s): Other (see comments) Hydrocodone-Acetaminophen 11/17/2020 Other reaction(s): AGITATED Other reaction(s): AGITATED Latex 06/29/2020 Other reaction(s): ITCHY, Other (see comments) Metoprolol 06/29/2020 Other reaction(s): Other (see comments) Medications spironolactone (ALDACTONE) 25 MG tablet Take 1 tablet by mouth daily. 12/09/2021 Active docosahexaenoic acid-epa 120-180 mg Cap Activ e cholecalciferol , vitamin D3, 25 mcg (1,000 unit) capsule Take 1 capsule by mouth. Active Social History Tobacco Use Types Packs/Day Years Used Date Smoking Tobacco: Never Assessed Education Answer Date Recorded Are you interested in more education? Not on alfie e 08/30/2022 Are you concerned about learning? Not on file 08/30/2022 No 08/30/2022 No 08/30/2022 Digital Access Answer Date Recorded No 09/28/2022 No 09/28/2022 Reliable internet access at home? Not on file 09/28/2022 Device with a working camera? Not on file Comments Unknown Sex and Gender Information Value Date Recorded Sex Assigned at Not on file Legal Sex Female 9:54 PM EDT Gender Identity Not on file Sexual Orientation Not on file Last Filed Vital Signs Vital Sign Reading Time Taken Comments Blood Pressure 126/70 05/07/2022 8:28 AM EST Pulse 76 05/07/2022 8:28 AM EST Temperature 36.4 C (97.5 F) 05/07/2022 8:28 AM EST Respiratory Rate 18 05/07/2022 8:28 AM EST Oxygen Saturation 96% 05/07/2022 8:28 AM EST Inhaled Oxygen Concentration - - Weight - - Height - - Body Mass Index - - Plan of Treatment Health Maintenance Due Date Last Done Comments LIPID PANEL 1955 POTASSIUM LEVEL 1955 DEPRESSION SCREENING 1968 SMOKING Hx and SMOKELESS TOBACCO SCREENING 12/31/1968 HEPATITIS C SCREENING 12/31/1973 MAMMOGRAM 1996 COLOGUARD 12/31/2000 COLONOSCOPY 12/31/2000 COLORECTAL CANCER SCREENING 12/31/2000 FIT TEST 12/31/2000 FOBT 12/31/2000 SIGMOIDOSCOPY 12/31/2000 VIRTUAL COLONOSCOPY 12/31/2000 PNEUMOCOCCAL VACCINES (50+ years) (1 of 1 - PCV) 12/31/2005 ZOSTER VACCINES (1 of 2) 12/31/2005 Adult Td,Tdap Booster 11/08/2012 11/08/2002 OSTEOPOROSIS SCREENING INITIAL (ONE-TIME) 12/31/2020 COVID-19 VACCINE ( season) 2024 04/11/2021, 08/30/2020, 08/09/2020, Additional history exists RSV VACCINE (1 - 1-dose 75+ series) 12/31/2030 HEPATITIS A VACCINES Aged Out No long er eligible based on patient's age to complete this topic HIB VACCINES Aged Out No longer eligi ble based on patient's age to complete this topic MENINGOCOCCAL VACCINES (ACWY) Aged Out No longer eligible based on patient's age to complete this topic MENINGOCOCCAL VACCINES (B) Aged Out N o longer eligible based on patient's age to complete this topic Medical Devices Not on file Insurance [employer] MED[employer] COMPLEMENT SUPPLEMENT MEDICARE PART A & B [facility] MEDICARE COMPLEMENT SUPPLEMENT MEDICARE PART A & B [employer] MED[employer] COMPLEMENT SUPPLEMENT MEDICARE PART A & B [facility] MEDICARE COMPLEMENT SUPPLEMENT [employer] MED[place] COMPLEMENT SUPPLEMENT MEDICARE PART A & B [facility] MEDICARE COMPLEMENT SUPPLEMENT MEDICARE PART A & B [facility] MEDICARE COMPLEMENT SUPPLEMENT MEDICARE PART A & B Care Teams Edge Grinder Machine Relationship Specialty Start Date End Date Dickson Kendrick MD PCP - General Internal Medicine 05/07/22 Additional Source Comments The information contained in this document represents components of the legal health record. It is not the complete legal health record.[facility]
--- OUTSIDE RECORDS SUMMARY | 2024-12-01 14:38 | XMS_ITS | Clinical Summary ---
Author Organization [facility] Address [address] [place] [address] Care Team Providers Care School Guard Name Role Phone Dickson Kendrick MD Primary Care Provider [phone] Allergies Active Allergy Reactions Criticality Noted Date Comments Carvedilol 10/12/2024 Latex Itching 10/12/2024 Hydrocodone-Acetaminophen 10/12/2024 Medications No known medications Active Problems No known active problems Encounters Date Type Department Care Team Description 10/12/2024 11:02 PM EDT - 10/12/2024 11:46 PM EDT Emergency [facility] Emergency Department [address] [place] [phone] Kelli Wallace MD Tick bite with subsequent removal of tick (Primary Dx) Discharge Disposition: Home or Self Care from Last 3 Months Social History Tobacco Use Types Packs/Day Years Used Date Smoking Tobacco: Never Assessed Humiliation, Afraid, Rape, and Kick questionnair e Answer Date Recorded Within the last year, have y ou been afraid of your partner or ex-partner? No 10/12/2024 Emotionally Abused Not on file 10/12/2024 Physically Abused Not on file 10/12/2024 Sexually Abused Not on file 10/12/2024 Comments Unknown Sex and Gender Information Value Date Recorded Sex Assigned at Not on file Legal Sex Female 10:36 PM EDT Gender Identity Not on file Sexual Orientation Not on file Last Filed Vital Signs Vital Sign Reading Time Taken Comments Blood Pressure 167/105 10/12/2024 10:38 PM EDT Pulse 86 10/12/2024 10:38 PM EDT Temperature 36.7 C (98.1 F) 10/12/2024 10:38 PM EDT Respiratory Rate 20 10/12/2024 10:38 PM EDT Oxygen Saturation 97% 10/12/2024 10:38 PM EDT Inhaled Oxygen Concentration - - Weight 111.1 kg (245 lb) 10/12/2024 10:38 PM EDT Height 175.3 cm (5' 9 ) 10/12/2024 10:38 PM EDT Body Mass Index 36.18 10/12/2024 10:38 PM EDT Plan of Treatment Health Maintenance Due Date Last Done Comments Bone Density (DXA) Scan 1955 MEDICARE ANNUAL WELLNESS VIS IT (AWV) 1955 HEPATITIS C SCREENING 12/31/1972 COLONOSCOPY (CRC) 12/31/2000 COLORECTAL CANCER SCREENING (CRC) 12/31/2000 CT COLONOGRAPHY (CRC) 12/31/2000 FIT-DNA (CRC) 12/31/2000 FIT/iFOBT (CRC) 12/31/2000 SIGMOIDOSCOPY (CRC) 12/31/2000 DTAP/TDAP/TD VACCINES (1 - Tdap) 11/09/2002 11/08/2002 PNEUMOCOCCAL VACCINE: 50+ YEARS (1 of 1 - PCV) 12/31/2005 ZOSTER VACCINE (1 of 2) 12/31/2005 COVID-19 IMMUNIZATION (4 - season) 2024 04/11/2021, 08/30/2020, 08/09/2020 INFLUENZA VACCINE (#1) 2024 4, 02/03/2012 RSV IMMUNIZATION (1 - 1-dose 75+ series) 12/31/2030 IPV VACCINES Aged Out No longer eligi ble based on patient's age to complete this topic MENINGOCOCCAL B VACCINE Aged Out No l onger eligible based on patient's age to complete this topic Procedures Procedure Name Priority Date/Time Associated Diagnosis Comments ED FOREIGN BODY REMOVAL Routine 10/12/2024 11:37 PM EDT from Last 3 Months Results * Foreign Body Removal - Embedded (10/12/2024 11:37 PM EDT) Narrative Kelli Wallace MD - 10/12/2024 11:37 PM EDT Kelli Wallace MD 10/12/2024 11:38 PM Foreign Body Removal - Embedded Date/Time: 10/12/2024 11:37 PM Performed by: Kelli Wallace MD Authorized by: Kelli Wallace MD Location: Location: Scalp Scalp location: Frontal Tendon involvement: None Anesthesia: Anesthesia method: None Procedure type: Procedure complexity: Simple Procedure details: Dissection of underlying tissues: no Removal mechanism: Hemostat Foreign bodies recovered: 1 Description: Single min engorged tick removed from R scalp just inside ant hairline Intact foreign body removal: yes Post-procedure details: Neurovascular status: intact Confirmation: No additional foreign bodies on visualization Skin closure: None Dressing: Open (no dressing) Patient tolerated the procedure well with no immediate complications; vital signs stable, patient responsive, level of consciousness appropriate: Yes Kelli Wallace MD PROCEDURE/MINOR SURGICAL O RDERABLES Final Result from Last 3 Months Insurance ([place]) [address] [place] [address] MED[address]ARE PART A AND B [facility] ([place]) [address] [place] [address] Care Teams School Guard Relationship Specialty Start Date End Date Dickson Kendrick MD [address] [place] [address] PCP - General Internal Medicine 10/12/24
--- NOTE | 2024-12-01 15:18 | MHC.AU.HA3 ---
Hearing Instrument Follow-Up- Binaural Date of Visit: 12/01/24 Right Ear: Zenon, Model, Color, Serial Number: Mónica Jackson [id number] SN: [id number] Color: Teal Solution Coordinator Repair Warranty: 11/04/2027 Solution Coordinator Loss and Damage Warranty: 11/04/2027 [facility] Service Plan: OPTED OUT Battery Size: 312 Cephalometric Tracer/Slim Tube: 2M Earmold/Dome/CShell/SlimTip:Medium power dome (no retention tail) Type of Wax Guard: CeruStop Dispensed By: [facility] Date of Fittin10/19/2024 Left Ear: Zenon, Model, Color, Serial Number: Mónica Jackson [id number] SN: [id number] Color: Teal Solution Coordinator Repair Warranty: 11/04/2027 Solution Coordinator Loss and Damage Warranty: 11/04/2027 [facility] Service Plan: OPTED OUT Battery Size: 312 Cephalometric Tracer/Slim Tube: 2M Earmold/Dome/CShell/SlimTip: Medium power dome (no retention tail) Type of Wax Guard: CeruStop Dispensed By: [facility] Date of Fittin10/19/2024 Follow-Up Summary: Laura reports the hearing aids are overall too quiet. Notes she didn't feel any change since her last visit where she asked for the noise management increase to be reversed. She is frustrated with the performance of these hearing aids and thinking about returning them and going back to her old ones. Advised that the hearing aids feeling too quiet in all situations without fluctuation would not be indicative of noise reduction being too strong. Checked aids, some build up noted in wax guards. Replaced wax guards and domes, listening check positive. Checked settings, confirming that settings had in fact been changed back to initial settings at her last visit. Laura reported much improvement with the wax guards changed. Suggested increase in overall volume as Laura has reported they haven't been loud enough. She reported that she did not feel any volume changes was needed as they are sounding much better to her now. Advised her 30 day trial period recently passed, but that I would be willing to extend the return window with the product owner to give her a little more time with the aids now that she feels they are working better. Advised to call if she has any more problems and that she must return the aids to us by 12/15/24 if she wants to return them for credit. Advised she can do this as a drop off. Aids need to be received by [facility] by 01/02/25 for [facility]. Recommendations: Recommendations: Hearing instrument follow-up or maintenance as needed. Patient will call if problems persist. Diagnosis Code(s): Primary Diagnosis: H90.3 Bilateral Sensorineural Hearing Loss Signature: Provider: Rebeca Nascimento, [facility]
== END 2024-12-01 13:58 | disposition home or self-care (01) ==
LOC: HO.HAP 13:57
PROVIDERS: Visit Provider Internal Medicine
DX: Z13.89 Encounter for screening for other disorder (principal)

== ENCOUNTER 2024-12-08 13:13 | Outpatient (REF) | payer SELFPAY ==
--- OUTSIDE RECORDS SUMMARY | 2023-08-06 05:00 | XMS_ITS ---
Author Organization [facility] Address [address] [place] [address] Care Team Providers Care Customs Consultant Name Role Phone Dickson Kendrick MD Primary Care Provider Cathy Davis [phone] Encounters Encounter Location Date Provider Diagnosis [facility] [address] [place] [address] 08/06/2023 Cathy Levine Plan Of Treatment No Information Progress Notes * Cristopher CARBONE MDOB: [birth year] (69 yo F)Acc No.[id number]:08/06/2023 Progress Note Patient: Caren ESCOBAR Cristopher Belle Provider: Varinder Levine DPM :1955 A ge:68 Y S ex:Female Date:08/06/2023 Address:[address], [id number] Pcp:Dickson Kendrick MD Subjective: * Chief Complaints: [...] 0 08/06/2023 Generated for Printi ng/Faxing/eTransmitting on: 12/08/2024 01:47 PM EDT
--- OUTSIDE RECORDS SUMMARY | 2024-12-08 13:48 | XMS_ITS | Clinical Summary ---
Author Organization [facility] Address [address] [place] [address] Phone Care Team Providers Care Template Cutter Name Role Phone Dickson Kendrick MD Primary Care Provider [phone] Allergies Active Allergy Reactions Criticality Noted Date [...] COMPLEMENT SUPPLEMENT MEDICARE PART A & B [facility] MEDICARE COMPLEMENT SUPPLEMENT MEDICARE PART A & B [facility] MEDIC[facility] COMPLEMENT SUPPLEMENT MEDICARE PART A & B [facility] MEDICARE COMPLEMENT SUPPLEMENT [facility] MEDICARE COMPLEMENT SUPPLEMENT MEDICARE PART A & B [facility] MEDICARE COMPLEMENT SUPPLEMENT MEDICARE PART A & B [facility] MEDICARE COMPLEMENT SUPPLEMENT MEDICARE PART A & B Care Teams Template Cutter Relationship Specialty Start Date End Date Dickson Kendrick MD PCP - General Internal Medicine 05/07/22 Additional Source Comments The information contained in this document represents components of the legal health record. It is not the complete legal health record.[facility]
--- OUTSIDE RECORDS SUMMARY | 2024-12-08 13:48 | XMS_ITS | Clinical Summary ---
Author Organization [facility] Address [address] [place] [address] Phone Care Team Providers Care Purchase Request Editor Name Role Phone Dickson Kendrick MD Primary Care Provider [phone] Allergies Active Allergy Reactions Criticality Noted Date [...] patient's age to complete this topic Insurance [facility] Medicare Care Teams Purchase Request Editor Relationship Specialty Start Date End Date Dickson Kendrick MD [address] [place] [id number] PCP - General Internal Medicine 04/17/22
--- OUTSIDE RECORDS SUMMARY | 2024-12-08 13:48 | XMS_ITS | Clinical Summary ---
Author Organization [facility] [place] [facility] Address [address] [place] [address] Care Team Providers Care Agronomy Supervisor Name Role Phone Dickson Kendrick MD Primary Care Provider [phone] Allergies Active Allergy Reactions Criticality Noted Date Comments Carvedilol 10/12/2024 Latex Itching 10/12/2024 Hydrocodone-Acetaminophen 10/12/2024 Medications No known medications Active Problems No known active problems Encounters Date Type Department Care Team Description 10/12/2024 11:02 PM EDT - 10/12/2024 11:46 PM EDT Emergency [facility] Emergency Department [address] [place] [phone] Kelli Wallace MD Tick bite with [...] Final Result from Last 3 Months Insurance (Industry) [address] [place] [address] MEDICARE PART A AND B [facility] (Industry) [address] [place] [address] Care Teams Agronomy Supervisor Relationship Specialty Start Date End Date Dickson Kednrick MD [address] [place] [address] PCP - General Internal Medicine 10/12/24
--- NOTE | 2024-12-08 13:51 | MHC.AU.HA3 ---
Hearing Instrument Follow-Up- Binaural Date of Visit: 12/08/24 Right Ear: Zenon, Model, Color, Serial Number: Mónica Jackson [id number] SN: [id number] Color: Teal Ticket Worker Repair Warranty: 11/04/2027 Ticket Worker Loss and Damage Warranty: 11/04/2027 [facility] Service Plan: OPTED OUT Battery Size: 312 Centrifugal Operator/Slim Tube: 2M Earmold/Dome/CShell/SlimTip:Medium power dome (no retention tail) Type of Wax Guard: CeruStop Dispensed By: [facility] Date of Fittin10/19/2024 Left Ear: Zenon, Model, Color, Serial Number: Mónica Jackson [id number] SN: [id number] Color: Teal Ticket Worker Repair Warranty: 11/04/2027 Ticket Worker Loss and Damage Warranty: 11/04/2027 [facility] Service Plan: OPTED OUT Battery Size: 312 Centrifugal Operator/Slim Tube: 2M Earmold/Dome/CShell/SlimTip: Medium power dome (no retention tail) Type of Wax Guard: CeruStop Dispensed By: [facility] Date of Fittin10/19/2024 Follow-Up Summary: Laura dropped her hearing aids off to the front end developer to return, an option we previously discussed on 12/01/24. RFC aids to Mónica. Recommendations: Recommendations: Please contact our clinic with any questions or concerns. Diagnosis Code(s): Primary Diagnosis: H90.3 Bilateral Sensorineural Hearing Loss Signature: Provider: Rebeca Nascimento, [facility]
== END 2024-12-08 13:14 | disposition home or self-care (01) ==
LOC: HO.SH 13:13
PROVIDERS: Visit Provider Internal Medicine
DX: Z13.89 Encounter for screening for other disorder (principal)

== ENCOUNTER 2025-01-18 09:14 | Outpatient (AMB) | payer MEDICARE, OTHER, SELFPAY ==
--- OUTSIDE RECORDS SUMMARY | 2023-08-06 05:00 | XMS_ITS ---
Author Organization [facility] Address [address] [place] [address] Care Team Providers Care Guitar Maker Name Role Phone Dickson Kendrick MD Primary Care Provider Cathy Davis [phone] Encounters Encounter Location Date Provider Diagnosis [facility] [address] [place] [address] 08/06/2023 Cathy Levine Plan Of Treatment No Information Progress Notes * Cristopher CARBONE MDOB: [birth year] (70 yo F)Acc No.[id number]:08/06/2023 Progress Note Patient: Caren ESCOBAR Cristopher Belle Provider: Varinder Levine DPM :1955 A ge:68 Y S ex:Female Date:08/06/2023 Address:[address], [id number] Pcp:Dickson Kendrick MD Subjective: * Chief Complaints: * * Medical History: Objective: * Vitals: Assessment: Plan: * Treatment: * Images: * The named appointment provid er may or may not be the originator of this progress note, and it is not deemed complete until electronically signed by the appointment provider. Sign off status: Pending * Provider: Varinder Levine DPM Date: 0 08/06/2023 Generated for Printi ng/Faxing/eTransmitting on: 0 01/18/2025 11:38 AM EDT
--- NOTE | 2025-01-18 09:19 | HO.NEPHOV ---
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: No Accompanied by: Self / Same As Patient Allergies lisinopril (Lisinopril) Allergy (Severe, Verified 01/18/25 09:25) ANGIOEDEMA acetaminophen (From Vicodin) Allergy (Unknown, Verified 01/18/25 09:25) AGITATION latex (Latex) Allergy (Unknown, Verified 01/18/25 09:25) ITCHING From Tekturna Allergy (Severe, Uncoded 01/20/20 14:40) ANGIOEDEMA From Vicodin Allergy (Unknown, Uncoded 01/20/20 14:40) AGITATION Medication List - Last Reconciled 01/18/25 by Eric Richmond MD apixaban (Eliquis) 5 mg PO BID metoprolol succinate ER 12.5 mg PO DAILY spironolactone 25 mg PO DAILY HPI Comments Details: Laura is well known to me for the last earlier she has a 68-year-old woman with a history of obesity and hypertension. She was on Bystolic which she has stopped and she started with Aldactone 12.5 mg a day. At present blood pressure seems to be well controlled. She has no complaints today. She continues to use CPAP regularly. 01/20/24 Has gained weight Admits to eating out alot 01/18/25 The patient is a 70-year-old female presenting with resistant hypertension. She reports low blood pressure during activity, causing discomfort, and is on spironolactone, which may be adjusted after cardioversion. Diagnosed with atrial fibrillation, she is on apixaban and metoprolol, with a planned cardioversion and potential switch to bystolic. Her heart rate was previously in the 90s but may have decreased. Kidney function tests from November 23 were normal, with creatinine at 0.82 mg/dL and potassium at 4.5 mmol/L. Medications: - Apixaban for atrial fibrillation - Metoprolol for rate control in atrial fibrillation - Spironolactone for resistant hypertension Diagnostic Results: - Labs: Creatinine 0.82 mg/dL, Potassium 4.5 mmol/L (November 23) ON LICENSE OF [facility] Medical History (Updated 07/17/23 @ 13:32 by Eric Richmond MD) Sleep apnea Malignant tumor of breast Hypertension Hearing problem Surgical History S/P lumpectomy, right breast Family History Father Hypertension Stroke Heart disease Brother Hypertension Diabetes Social History Alcohol intake: never Patient Tobacco Use Status: Never used Tobacco Physical Exam Vital Signs: Last Vital Signs Pulse 106 H 01/18/25 09:20 BP 106/78 01/18/25 09:20 Pulse Ox 96 01/18/25 09:20 Oxygen Delivery Method Room Air 01/18/25 09:20 BMI result Body Mass Index 37.4 Const General: comfortable Nutritional Appearance: well nourished Orientation/consciousness: patient oriented x3 HEENT Head: No normal to inspection Mouth: moist mucous membranes Neck Neck: Yes supple and Yes no JVD Resp Auscultation: clear to auscultation bilaterally, no rales and rub present Cardio Jugular venous distension: no JVD Palpation: no palpable S3 and no palpable S4 Heart sounds: no rubs GI Palpation (GI): Soft to palpation and nontender Percussion: No Fluid wave present General: Yes no CVA tenderness Back/Spine/Pelvis Back: no CVA tenderness Skin General skin exam: no rashes or lesions noted Neuro General: patient oriented x3 Extrem General: Yes no pedal edema and No clubbing Results Reviewed Nephrology Results: Hgb, (12.0-16.0) 13.8 g/dl 07/10/23 WBC, (4.8-10.8) 4.5 X10*3/uL L 07/10/23 Plt Count, (160-400) 210 X10*3/uL 07/10/23 Sodium, (135-145) 140 mmol/L 07/10/23 Potassium, (3.3-5.1) 4.0 mmol/L 07/10/23 Chloride, (96-108) 108 mmol/L 07/10/23 Carbon Dioxide, (22-29) 26 mmol/L 07/10/23 BUN, (9-16) 15 mg/dL 07/10/23 Creatinine, (0.5-1.4) 0.74 mg/dL 07/10/23 Calcium, (8.4-10.2) 9.1 mg/dL 07/10/23 Assessment & Plan Assessment & Plan (1) Hypertension: Code(s): I10 - Essential (primary) hypertension Category: Medical Plan Blood pressure controlled Encouraged to stay on low-sodium diet. She should try to lose some weight and increase physical activity. I have encouraged her to continue using CPAP which should eventually help to lower her blood pressure. No changes were made to the antihypertensive regimen today. Renal function stable at this time. 01/18/25 1. Resistant Hypertension - Monitor BP post-cardioversion; adjust spironolactone if needed. Low salt diet Needs weight loss 2. Atrial Fibrillation - Continue current medications; cardioversion planned. 3. Renal Function is stable. Orders: Orders Basic Metabolic Panel 1 Year I10 - Essential (primary) hypertension Complete Blood Count no Diff 1 Year I10 - Essential (primary) hypertension Coding Level of Care Code Est Pt Level 4 (31075) Diagnoses Hypertension I10
[2025-01-18 09:20] VITALS: BP 106/78; PULSE 106; O2SAT 96; BMI 37.4
--- OUTSIDE RECORDS SUMMARY | 2025-01-18 11:38 | XMS_ITS | Clinical Summary ---
Author Organization [facility] Address [address] [place] [address] Phone Care Team Providers Care Network Operations Technician Name Role Phone Dickson Kendrick MD Primary Care Provider [phone] Allergies Active Allergy Reactions Criticality Noted Date Comments Tremiane Inhibitors 06/29/2020 Other reaction(s): ANGIOEDEMA, Other (see [...] 11/08/2012 11/08/2002 OSTEOPOROSIS SCREENING INITIAL (ONE-TIME) 12/31/2020 INFLUENZA VACCINE (#1) 2024 03/05/2014, 2011 COVID-19 VACCINE ( season) 2025 04/11/2021, 08/30/2020, 08/09/2020, Additional history exists RSV [...] topic Medical Devices Not on file Insurance [facility] MEDICARE COMPLEMENT SUPPLEMENT MEDICARE PART A & B [facility] MEDICARE COMPLEMENT SUPPLEMENT MEDICARE PART A & B [facility] MED[facility] COMPLEMENT SUPPLEMENT [place] MED[place] COMPLEMENT SUPPLEMENT [facility] Address: [address] [address] MEDICARE PART A & B [facility] MEDICARE COMPLEMENT SUPPLEMENT [place] COMPLEMENT SUPPLEMENT [facility] Address: [address] [place] [address] MEDICARE PART A & B [facility] MEDICARE COMPLEMENT SUPPLEMENT [facility] Address: [address] [address] MEDICARE PART A & B [facility] MEDICARE COMPLEMENT SUPPLEMENT [facility] Address: [address] [address] MEDICARE PART A & B Care Teams Network Operations Technician Relationship Specialty Start Date End Date Dickson Kendrick MD PCP - General Internal Medicine 05/07/22 Additional Source Comments The information contained in this document represents components of the legal health record. It is not the complete legal health record.[facility]
--- OUTSIDE RECORDS SUMMARY | 2025-01-18 11:38 | XMS_ITS | Clinical Summary ---
Author Organization [facility] Address [address] [place] [address] Care Team Providers Care Bronc Buster Name Role Phone Dickson Kendrick MD Primary Care Provider [phone] Allergies Active Allergy Reactions Criticality Noted Date Comments Carvedilol 10/12/2024 Latex Itching 10/12/2024 Hydrocodone-Acetaminophen 10/12/2024 Medications No known medications Active Problems No known active problems Social History Tobacco Use Types Packs/Day Years [...] 12/31/2005 ZOSTER VACCINE (1 of 2) 12/31/2005 INFLUENZA VACCINE (#1) 2024 4, 02/03/2012 COVID-19 IMMUNIZATION ( - season) 2025 04/11/2021, 08/30/2020, 08/09/2020 RSV IMMUNIZATION (1 - 1-dose 75+ series) 12/31/2030 IPV VACCINES Aged Out No longer eligi ble based on patient's age to complete this topic MENINGOCOCCAL B VACCINE Aged Out No l onger eligible based on patient's age to complete this topic Insurance MEDICARE PART A AND B [facility] Care Teams Bronc Buster Relationship Specialty Start Date End Date Dickson Kendrick MD [address] [facility] [place] [address] PCP - General Internal Medicine 10/12/24
--- OUTSIDE RECORDS SUMMARY | 2025-01-18 11:38 | XMS_ITS | Patient Health Record ---
[facility] Address [address] [place] [address] Care Team Providers Care Waterworks Supervisor Name Role Phone Dickson Kendrick MD Primary Care Provider Cathy Davis Unavailable [phone] Allergies Allergen (clinical drug ingredient) Drug/Non Drug Allergy documented on EMR Reaction Allergy Type Onset Date Status carvedilol Coreg itching Drug Allergy Active lisinopril Lisinopril itching Drug Allergy Activ e Reason For Referral No Information Medications Medication SIG (Take, Route, Frequency, Duration) Notes Start Date End Date Status Magnesium Active Spironolactone 25 MG 1 tablet Orally Active Vitamin D3 25 MCG (1000 UT) 1 tablet Orally Once a day Active Bystolic 20 MG 1 tablet Orally Once a day Not-Taking CoQ-10 200 MG as directed Orally Active B Complex Active Biotin 5000 MCG 1 capsule Orally Onc e a day Active Fish Oil Active Social History Tobacco Use: Social History Observation Description Date Details (start date - stop date) Never Smoker NA - NA Tobacco Use/Smoking Question Answer Notes Are you a: nonsmoker Additional Findings: Tobacco Non-User Current no n-smoker Alcohol Screen Question Answer Notes Did you have a drink containing alcohol in the p ast year? No Points 0 Interpretation Negative Tobacco use other than smoking: Question Answer Notes Are you an other tobacco user? No Problems Problem Type SNOMED Code ICD Code Onset Dates Problem Status W/U Status Risk Notes Problem Plantar wart (05651322) Plantar wart (B07.0) Active confirmed Problem Acquired hammer toe of left foot ([id number] 103) Hammer toe of left foot (M20.42) Active confirmed Plan Of Treatment Pending Test Test Name Order Date X ray : Foot, left 3V 01/14/2023 Insurance Providers Payer Name Payer Address Payer Phone Subscriber Number Group Number Insured Name Patient Relationship to Insured Coverage Start Date Coverage End Date Medicare [employer] [address] [place] [address] [id number] Cristopher Carbone Self - patient is the insured Bethany [place]and [address] [place] [id number] Cristopher Carbone Self - patient is the insured Medical (General) History Medical History History ICD Code Cancer Headaches/Migraines High blood pressure Numbness Chicken pox Sleep apnea H/A, bilateral Surgical History Surgery Date(Month/Year) Breast Surgery 2012
--- OUTSIDE RECORDS SUMMARY | 2025-01-18 11:38 | XMS_ITS | Clinical Summary ---
Author Organization [facility] Address [address] [place] [address] Phone Care Team Providers Care Newspaper Stuffer Name Role Phone Dickson Kendrick MD Primary Care Provider [phone] Allergies Active Allergy Reactions Criticality Noted Date [...] patient's age to complete this topic Insurance [facility] Medicare [facility] Medicare Care Teams Newspaper Stuffer Relationship Specialty Start Date End Date Dickson Kendrick MD [address] [place] [phone] PCP - General Internal Medicine 04/17/22
== END 2025-01-18 09:39 | disposition home or self-care (01) ==
LOC: HO.HKA 09:15
PROVIDERS: PCP Internal Medicine; Visit Provider Internal Medicine Hypertension Specialist
DX: I10 Essential (primary) hypertension (principal)
CPT/HCPCS: 99214

== ENCOUNTER → 2025-01-18 09:14 | Outpatient (BNVA) | payer MEDICARE, OTHER, SELFPAY | PROVIDERS: PCP Internal Medicine; Visit Provider Internal Medicine Hypertension Specialist | DX: I10 Essential (primary) hypertension (principal) | CPT/HCPCS: 99212 ==